=== PATIENT | male | born 1995 | race Two or more races ===

== ENCOUNTER 2020-04-05 03:25 | Emergency (ER) | payer MEDICAID, OTHER ==
[~2020-04-05] VITALS: Ht 170.2 cm; Wt 104.3 kg
[2020-04-05] MEDS ORDERED: SODIUM CHLORIDE 0.9% 2,000 ML IV ONE (03:45)
[2020-04-05 04:18] LABS: Basophils # (auto) 0.1 10 ^3/uL (0-0.2); Basophils % (auto) 0.4 % (0.0-2.0); Eosinophils # (auto) 0.2 10 ^3/uL (0-0.8); Eosinophils % (auto) 0.9 % (0.0-7.0); Hematocrit 43.9 % (41.0-53.0); Hemoglobin 14.7 g/dL (13.5-17.5); Lymphocytes # (auto) 3.2 10 ^3/uL (0.4-5.4); Lymphocytes % (auto) 16.1 % (10.0-50.0); Mean Corpuscular Hemoglobin 30.6 pg (28.0-32.0); Mean Corpuscular Hgb Conc. 33.5 g/dL (32.0-36.0); Mean Corpuscular Volume 91.5 fL (80.0-100.0); Monocytes # (auto) 0.5 10 ^3/uL (0-1.3); Monocytes % (auto) 2.5 % (0.0-12.0); Neutrophils # (auto) 15.9 10 ^3/uL (1.6-8.6); Neutrophils % (auto) 80.1 % (37.0-80.0); Platelet Count (auto) 243 10^3/uL (140-450); White Blood Cell 19.9 10^3/uL (4.4-10.8)
[2020-04-05 04:35] LABS: Albumin 3.9 g/dL (3.4-5.0); Anion Gap 9 (5-15); Blood Alcohol < 3.0 mg/dL (0-5); Blood Urea Nitrogen 19 mg/dL (7-18); Calcium 8.5 mg/dL (8.5-10.1); Carbon Dioxide 26 mmol/L (21-32); Chloride 104 mmol/L (98-107); Magnesium 2.2 mg/dL (1.6-2.6); Potassium 4.6 mmol/L (3.5-5.1); Salicylate 1.9 mg/dL (2.8-20.0); Sodium 139 mmol/L (136-145)
[2020-04-05 04:38] LABS: Alanine Aminotransferase 53 U/L (16-61); Alkaline Phosphatase 110 U/L (45-117); Aspartate Aminotransferase 38 U/L (15-37); Bilirubin, Total 0.2 mg/dL (0.2-1.0); GFR African American 75 mL/min; GFR Non-African American 62 mL/min
[2020-04-05 04:40] LABS: Acetaminophen < 2.0 ug/mL (10-30); BUN/Creatinine Ratio 12.8
[2020-04-05 04:41] LABS: Glucose 407 mg/dL (74-106)
[2020-04-05] MEDS ORDERED: InsuLIN REG 1unit/0.01ml Soln (100units/ml) IV ONE (05:00)
[2020-04-05 07:52] VITALS: BP 105/72
[2020-04-05 08:14] LABS: Lactic Acid w/Reflex 2.9 mmol/L (0.4-2.0)
== END 2020-04-05 08:21 | disposition home or self-care (01) ==
LOC: EDBD 03:25 → ER 03:25
DX: T40.411A Poisoning by fentanyl or fentanyl analogs, accidental (unintentional), initial encounter (principal); R41.82 Altered mental status, unspecified; R73.9 Hyperglycemia, unspecified; E16.0 Drug-induced hypoglycemia without coma; R07.9 Chest pain, unspecified; Y92.89 Other specified places as the place of occurrence of the external cause
CPT/HCPCS: 36415; 36600; 70450; 71045; 80053; 80320; 80329; 82805; 83605; 83735; 85025; 96361; 96374; 99285; J1815; J7030

== ENCOUNTER 2023-01-23 02:25 | Emergency (ER) | payer MEDICAID ==
[~2023-01-23] VITALS: Ht 182.9 cm; Wt 110.0 kg
[2023-01-23 02:42] VITALS: PULSE 118; RESP 96; O2SAT 96
[2023-01-23] MEDS ORDERED: NALOXONE HCL 1MG/ML 2ML SYRINGE ONE (03:26)
[2023-01-23] MEDS ORDERED: NALOXONE HCL 1MG/ML 2ML SYRINGE IV ONE (03:30)
[2023-01-23] MEDS ORDERED: ONDANSETRON HCL 4 MG/2 ML VIAL IV ONE (05:45)
[2023-01-23 06:00] VITALS: BP 115/69; PULSE 79; RESP 22; O2SAT 95
== END 2023-01-23 07:08 | disposition home or self-care (01) ==
LOC: EDBD 02:25 → ER 02:25
DX: T50.7X1A Poisoning by analeptics and opioid receptor antagonists, accidental (unintentional), initial encounter (principal); Y92.89 Other specified places as the place of occurrence of the external cause
CPT/HCPCS: 36415; 80329; 93005; 96374; 99284; J2310